=== PATIENT | male | born 1945 | race Caucasian/White ===

== ENCOUNTER 2016-10-10 12:39 | Emergency (ER) | payer MEDICARE, OTHER ==
[2016-10-10] MEDS ORDERED: DIPHTH,PERTUSS(ACELL),TET VAC 0.5 ML VIAL IM ONE ×2 (14:10→14:11)
[2016-10-10 14:22] VITALS: BP 156/96
--- NOTE | 2016-10-10 14:24 | ERNOTE ---
Lower Extremity HPI - Narrative Date of Service: 10/10/16 - General Lower Extremities Pain: leg: right, ankle: right Time Seen by Provider: 10/10/16 14:01 Source: patient, RN notes reviewed Exam Limitations: no limitations - Immun/Allergies/Home Medications Immunizations: IMMUNIZATION HX Immunizations Up to Date Yes Allergies/Adverse Reactions: Allergies Allergy/AdvReac Type Severity Reaction Status Date / Time Penicillins Allergy Hives Verified 10/10/16 12:52 Home Medications: HOME MEDICATIONS Aspirin [Aspirin Enteric Coated] 81 mg PO DAILY 02/14/13 [Last Taken Unknown] Hydrochlorothiazide 12.5 mg PO DAILY 02/14/13 [Last Taken Unknown] Losartan Potassium 25 mg PO DAILY 02/14/13 [Last Taken Unknown] Magnesium 250 mg PO DAILY 02/14/13 [Last Taken Unknown] Multivitamins [Multivitamin Roger] 1 cap PO DAILY 02/14/13 [Last Taken Unknown] [place]-3 Fatty Acids [Fish Oil] 1,000 mg PO DAILY 02/14/13 [Last Taken Unknown] - History of Present Illness Narrative: 71 y/o male ambulatory to the ED for injuries to his right leg that occurred several days ago when he was struck by a large truck tire. He was taking the tire down from a rack when it struck the ground and bounced back up into his rubin. He has an abrasion where it struck him, but also has edema and ecchymosis to his ankle. He denies pain. Occurred: last week Location of Incident: home Method of Injury: Reports: direct blow Loss of Consciousness: Reports: no loss of consciousness Associated Symptoms: Denies: unable to bear weight, snapping, popping sensation Other Injuries: Reports: none Prior Treament: Denies: recently seen Review of Systems - Review of Systems Constitutional: Absent: fever, chills, malaise EYE: Present: no symptoms reported ENT: Present: no symptoms reported Respiratory: Present: no symptoms reported Cardiology: Present: no symptoms reported Gastrointestinal/Abdominal: Present: no symptoms reported Genitourinary: Present: no symptoms reported Musculoskeletal: Present: joint swelling. Absent: muscle pain, joint pain Skin: Present: lesions. Absent: lumps, change in color Neurological: Absent: weakness, numbness, tingling Endocrine: Present: no symptoms reported Hematologic/Lymphatic: Present: no symptoms reported Psych: Present: no symptoms reported - Patient's Past Medical History Patient History - Medical: Diabetes Type 2 Patient History - Cardiac/Respiratory: Hypertension, Hyperlipidemia Patient History - Cancer: Leukemia Patient History - Surgical Procedures: T & A Patient History - Other: None - Social History Living Situations: home Psych History: No pertinent hx Alcohol Use: none Drug Use: none - Immunizations Immunizations Up to Date: No - unsure of last tetanus vaccine Physical Exam - Physical Exam General Appearance: Present: wd/wn, alert, no apparent distress Respiratory: Present: no respiratory distress, no accessory muscle use Cardiovascular/Chest: Present: normal peripheral pulses Peripheral Pulses: N=norm/S=strong/W=weak/B=bound/A=absent: Dorsalis-pedis (R): Strong Extremity Exam: Present: normal range of motion, extremity edema - Right ankle - medical and lateral aspect with moderate ecchymosis Neurological Exam: Present: alert, oriented, normal mood/affect, no motor/ sensory deficits Skin Exam: Present: normal color, warm/dry, other - Moderate sized abrasion to right rubin, appears to be healing well ED Progress - Vital Signs Patient's Vital Signs:: I have reviewed the patient's vital signs. Vital Signs: Vital Signs 10/10/16 12:43 Temperature 36.4 C L Pulse Rate 61 Respiratory 12 Rate Blood Pressure 142/92 O2 Sat by Pulse 97 Oximetry - X-Ray X-Ray #1 X-Ray: ankle Interpretation: Reviewed by me X-ray Comments: No acute osseous abnormality noted - Progress/Reassessment Chief Complaint: Lower Extremity Pain/ Injury Progress:: Unchanged Departure Clinical Impression: Abrasion Right ankle sprain Qualifiers: Encounter type: initial encounter Involved ligament of ankle: unspecified ligament Qualified Code(s): S93.401A - Sprain of unspecified ligament of right ankle, initial encounter - Departure Disposition: Home self-care Condition: Good Instructions: Ankle Sprain, [id number] Additional Instructions: Wash wound as needed with soap and water, apply antibiotic ointment twice a day Wear CHIDI wrap as needed for support Elevate foot whenever possible Weight bearing as tolerated Referrals: Carl Murrieta MD [Primary Care Provider] -
== END 2016-10-10 14:27 | disposition home or self-care (01) ==
LOC: ER 12:39
DX: S80.811A Abrasion, right lower leg, initial encounter (principal); X58.XXXA Exposure to other specified factors, initial encounter; Y93.89 Activity, other specified; Y92.009 Unspecified place in unspecified non-institutional (private) residence as the place of occurrence of the external cause; S93.401A Sprain of unspecified ligament of right ankle, initial encounter; I10 Essential (primary) hypertension; E78.5 Hyperlipidemia, unspecified; E11.8 Type 2 diabetes mellitus with unspecified complications; C95.91 Leukemia, unspecified, in remission; Z23 Encounter for immunization

== ENCOUNTER 2017-01-19 19:37 | Emergency (ER) | payer MEDICARE, OTHER ==
--- NOTE | 2017-01-19 20:14 | ERNOTE ---
Integumentary HPI - Narrative Date of Service: 01/19/17 - General Presenting Symptoms: rash Time Seen by Provider: 01/19/17 20:04 Source: patient, family, RN notes reviewed Exam Limitations: no limitations - Immun/Allergies/Home Medications Immunizations: IMMUNIZATION HX Immunizations Up to Date Yes History of Influenza Vaccine Yes Allergies/Adverse Reactions: Allergies Allergy/AdvReac Type Severity Reaction Status Date / Time Penicillins Allergy Hives Verified 01/19/17 19:42 Home Medications: HOME MEDICATIONS Aspirin [Aspirin Enteric Coated] 81 mg PO DAILY 02/14/13 [Last Taken Unknown] Hydrochlorothiazide 12.5 mg PO DAILY 02/14/13 [Last Taken Unknown] Losartan Potassium 25 mg PO DAILY 02/14/13 [Last Taken Unknown] Magnesium 250 mg PO DAILY 02/14/13 [Last Taken Unknown] Multivitamins [Multivitamin Roger] 1 cap PO DAILY 02/14/13 [Last Taken Unknown] [place]-3 Fatty Acids [Fish Oil] 1,000 mg PO DAILY 02/14/13 [Last Taken Unknown] - Pain Pain Score: 0 - History of Present Illness Narrative: 71 year old male presents to the ED with his for a rash on his legs that he first noticed this evening. He denies any pain or itching. He has chronic lymphoid leukemia and has been an an oral chemotherapy drug for several years. He denies any recent illnesses or other symptoms. Date (Duration): 01/19/17 Location: Reports: lower extremity Quality: Denies: itching, painful, burning Severity: moderate Exposure: Reports: no cause identified Associated Symptoms: Reports: rash. Denies: blisters, hives, petechiae, change in skin texture, swelling/mass/lumps, edema, fever, malaise Prior Treatment: Denies: recently seen Review of Systems - Review of Systems Constitutional: Absent: recent illness, fever, fatigue, malaise, decreased activity level EYE: Present: no symptoms reported ENT: Present: no symptoms reported Respiratory: Absent: shortness of breath, cough Cardiology: Absent: chest pain Gastrointestinal/Abdominal: Absent: nausea, vomiting, abdominal pain Genitourinary: Absent: dysuria, hematuria Musculoskeletal: Absent: muscle pain, joint pain Skin: Present: rash, lesions. Absent: lumps, change in color Neurological: Absent: headache, dizziness/light-headedness, weakness Endocrine: Present: no symptoms reported Hematologic/Lymphatic: Absent: easy bruising, easy bleeding Psych: Present: no symptoms reported - Patient's Past Medical History Patient History - Medical: Diabetes Type 2 Patient History - Cardiac/Respiratory: Hypertension, Hyperlipidemia Patient History - Cancer: Leukemia Patient History - Surgical Procedures: T & A Patient History - Other: None - Social History Living Situations: spouse Psych History: No pertinent hx Smoking Status: Never smoker Patient requests Smoking Cessation Consult: No Initiate information on Smoking Cessation: No Alcohol Use: none Drug Use: none - Immunizations Immunizations Up to Date: Yes History of Influenza Vaccine: Yes Physical Exam - Physical Exam General Appearance: Present: wd/wn, alert, no apparent distress Head Exam: Present: normal inspection Eye Exam: Normal inspection: bilateral Ears, Nose, Throat: Present: normal ENT inspection, normal pharynx Neck: Present: normal inspection, nontender, supple Respiratory: Present: no respiratory distress, normal breath sounds, no accessory muscle use, lungs clear Cardiovascular/Chest: Present: regular rate, rhythm, no murmur, normal peripheral pulses Extremity Exam: Present: normal inspection, non-tender, normal range of motion, no edema Neurological Exam: Present: alert, oriented, normal mood/affect, no motor/ sensory deficits Skin Exam: Present: warm/dry, skin rash - red macular lesions present on bilateral lower extremities ED Progress - Results and Orders Patient's Lab Results:: I have reviewed the patient's lab results. - Vital Signs Patient's Vital Signs:: I have reviewed the patient's vital signs. Vital Signs: Vital Signs 01/19/17 19:39 Temperature 36.5 C Pulse Rate 59 L Respiratory 20 Rate Blood Pressure 157/93 O2 Sat by Pulse 97 Oximetry - Progress/Reassessment Chief Complaint: Rash Progress:: Unchanged Plan - Plan Plan: Lab results unremarkable. Etiology of eruption is unclear but it does appear to be some type of vasculitis. The patient has an appointment with his oncologist next week, but he plans to contact his office tomorrow to see if he needs to be evaluated sooner. Departure Clinical Impression: Vasculitis - Departure Disposition: Home Follow Up Needed Condition: Stable Instructions: Vasculitis Additional Instructions: Contact Dr. Bennett's office tomorrow and tell them you have vasculitis You had a CBC, CMP, ESR, CRP and a UA - all were unremarkable Referrals: Carl Murrieta MD [Primary Care Provider] -
[2017-01-19 20:26] LABS: Hematocrit 39.7 % (42.0-52.0); Hemoglobin 13.7 gm/dL (13.5-18.0); Mean Cell Volume 92.1 fl (78-100); Mean Corpuscular Hemoglobin 31.8 pg (27-31); Mean Corpuscular Hgb Conc 34.5 g/dl (32-36); Mean Platelet Volume 10.1 fl (6.0-9.5); Neutrophil # 3.2 K/mm3 (1.3-6.0); Platelet Count 133 K/mm3 (150-450); Red Blood Count 4.31 M/mm3 (4.7-6.0); Red Cell Distribution Width 14.3 % (11.5-14.0); White Blood Count 5.8 K/mm3 (4.0-10.5)
[2017-01-19 20:42] LABS: Albumin * 3.4 gm/dl (3.4-5.0); Anion Gap 13.7 mmol/L (6.8-13.8); BUN/Creatinine Ratio 19.8 (9.0-21.6); Bilirubin, Total 0.4 mg/dL (0.0-1.1); Ca. Corrected For Albumin 8.7 mg/dL (8.4-10.2); Calcium * 8.5 mg/dL (7.9-10.9); Carbon Dioxide 27.6 mmol/L (24-32.6); Potassium 3.3 mmol/L (3.4-4.6); Total Protein 6.6 gm/dL (6.2-8.2)
[2017-01-19 20:47] LABS: Urine Bilirubin Negative (NEGATIVE); Urine Blood Negative /ul (NEGATIVE); Urine Ketone Negative (NEGATIVE); Urine Nitrite Negative (NEGATIVE); Urine Protein Negative (NEGATIVE); Urine Specific Gravity >=1.030 SP.GR. (1.005-1.030); Urine Urobilinogen Normal (NORMAL)
[2017-01-19 20:58] LABS: Urine Appearance Clear; Urine Bacteria TRACE; Urine Color Yellow; Urine Hyaline Cast 0-5 /LPF; Urine RBC None Seen /hpf (0-5); Urine Renal Epithelial Cell Few - 1+ /hpf; Urine WBC 0-5 /hpf (0-5)
[2017-01-19 21:47] VITALS: BP 155/88
== END 2017-01-19 21:49 | disposition home or self-care (01) ==
LOC: ER 19:37
DX: I77.6 Arteritis, unspecified (principal); Z85.6 Personal history of leukemia